=== PATIENT | male | born 1955 | race Caucasian/White ===

== ENCOUNTER 2021-04-15 18:44 | Observation (INO) | payer OTHER ==
[~2021-04-15] VITALS: Ht 190.5 cm; Wt 100.0 kg
[~2021-04-15 18:44] MED LIST: ALBU90OI6 INH; AMLO10 PO; BENMENLOZ PO; BENZ100A PO; Bactrim 400-801 EACH PO; CLIN150 PO; DEXA1L INJ; GABA300 PO; IBUP600 PO; LAVAP17G PO; LEVO750 PO; LOSA50 PO; METO25ER PO; PANT40 PO; TERA5 PO
[2021-04-15 19:43] LABS: BASOPHILS ABSOLUTE AUTO 0.02 K/mm3 (0.00-0.23); BASOPHILS PERCENT AUTO 0 % (0-2); EOSINOPHILS ABSOLUTE AUTO 0.01 K/mm3 (0.00-0.68); EOSINOPHILS PERCENT AUTO 0 % (0-6); Hematocrit 42.4 % (37.0-53.0); IMMATURE GRAN ABSOLUTE AUTO 0.02 K/mm3 (0.00-0.10); IMMATURE GRAN PERCENT AUTO 0 % (0-1); LYMPHOCYTES ABSOLUTE AUTO 0.87 K/mm3 (0.84-5.20); LYMPHOCYTES PERCENT AUTO 11 % (21-46); MONOCYTES ABSOLUTE AUTO 0.85 K/mm3 (0.16-1.47); MONOCYTES PERCENT AUTO 11 % (4-13); Mean Corpuscular HGB Conc 35.4 g/dL (31.5-36.5); Mean Corpuscular Volume 88 fL (80-100); Mean Platelet Volume 9.1 fL (9.1-12.4); NEUTROPHILS ABSOLUTE AUTO 6.36 K/mm3 (1.96-9.15); NEUTROPHILS PERCENT AUTO 78 % (41-73); Platelet Count 144 K/mm3 (150-400); RDW Coefficient Variation 12.5 % (11.7-14.2); RDW Standard Deviation 39.8 fL (35.1-46.3); Red Blood Cell Count 4.84 M/mm3 (4.30-5.90); White Blood Cell Count 8.13 K/mm3 (4.00-11.30)
[2021-04-15 20:02] LABS: Alanine Aminotransfer (ALT/SGP 24 U/L (12-78); Albumin, Blood 2.9 g/dL (3.4-5.0); Albumin/Globulin Ratio 0.9 (0.8-1.8); Alk Phos 55 U/L (50-136); Anion Gap 6 mmol/L (6-16); Aspartate Aminotrans (AST/SGOT 11 U/L (12-37); Blood Urea Nitrogen 12 mg/dL (8-24); Bun/Creatinine Ratio 11.1 (12.0-20.0); CO2, Blood 26 mmol/L (21-32); Calcium, Blood 8.7 mg/dL (8.5-10.1); Chloride, Blood 108 mmol/L (98-108); Creatinine, Blood 1.08 mg/dL (0.60-1.20); Globulin, Blood 3.4 g/dL (2.2-4.0); Glomerular Filtration Rate >60 (60-); Glucose, Blood 100 mg/dL (70-99); Potassium, Blood 4.2 mmol/L (3.5-5.5); Sodium, Blood 140 mmol/L (136-145); Total Protein, Blood 6.3 g/dL (6.4-8.2)
--- NOTE | 2021-04-15 23:50 | NUR ---
RECEIVED REPORT FROM JAYLEN MATHEW IN ER. PT ARRIVED TO ROOM IN WHEELCHAIR AND WAS ABLE TO TRANSFER TO BED ON HIS OWN. PT WAS ABLE TO WALK TO THE BATHROOM ON HIS OWN. PT REPORTS PAIN AT 5/10 ON PAIN SCALE. WILL MEDICATE PER EMAR. IV IN R AC PATENT AND FUNCTIONING. PT A&O X4 AND VERY PLEASANT. PT ORIENTED TO ROOM AND CALL LIGHT WITHIN REACH.
--- NOTE | 2021-04-16 05:55 | NUR ---
SHIFT SUMMARY PT WAS ADMITTED FOR CHOLECYSTITIS. PT DENIES N/V. HAS REPORTED PAIN AND HAS BEEN TREATED PER EMAR. PT IS A&O X4 AND VERY PLEASANT. PT IS ABLE TO GET UP AND MOBILIZE ON HIS OWN BUT WILL USE THE URINAL. PT HAS APPEARED TO REST COMFORTABLY IN BED MOST OF THE SHIFT. PT CURRENTLY RESTING IN BED AND CALL LIGHT IS WITHIN REACH.
--- NOTE | 2021-04-16 09:14 | NUR ---
PT HAD COVID TEST ON 04/15 AT THE [facility]. PAPER COPY IN PATIENT'S CHART.
--- NOTE | 2021-04-16 12:30 | NUR ---
PT TO SURGERY AT THIS TIME. PT HAD AN INSTANCE WHERE HE BECAME UPSET WITH THE HOSPITAL AND REQUESTED TO LEAVE AMA. THIS RN SPOKE WITH THE PATIENT ABOUT HIS CONCERNS AND OFFERED SOLUTIONS TO FIX THEM. CONVINCED THE PATIENT TO STAY AND HAVE SURGERY.
--- NOTE | 2021-04-16 13:18 | NUR ---
04/16/21 1318 Isela Messer PT ON SCHEDULED ANTIBIOTIC
--- NOTE | 2021-04-16 18:49 | NUR ---
SHIFT SUMMARY PT STATUS POST FOR LAP RIDGE. 4 LAP SITES WITH DERMABOND CDI. PT A/O X4 AND ABLE TO MAKE NEEDS KNOWN. PT EXPERIENCED QUITE A BIT OF PAIN AFTER SURGERY AND HAS NOT BEEN ABLE TO GET UP YET. PAIN HAS BEEN RELIEVED SOME AND THE PATIENT IS NOW ABLE TO REPOSITION IN BED. NO FLATUS OR BM BUT THE PT IS BELCHING OFTEN. VSS. WILL REPORT TO [facility].
--- NOTE | 2021-04-16 22:40 | NUR ---
IV ACCESS IV ACCESS ESTABLISHED AT [facility], IN PLACE WHEN PATIENT ARRIVED PER PATIENT REPORT
[2021-04-17 05:15] LABS: Hematocrit 47.2 % (37.0-53.0); Hemoglobin 16.1 g/dL (13.5-17.5); Mean Corpuscular HGB 30.4 pg (26.0-34.0); Mean Corpuscular HGB Conc 34.1 g/dL (31.5-36.5); Mean Corpuscular Volume 89 fL (80-100); Mean Platelet Volume 9.5 fL (9.1-12.4); Platelet Count 184 K/mm3 (150-400); RDW Coefficient Variation 12.6 % (11.7-14.2); RDW Standard Deviation 41.1 fL (35.1-46.3); Red Blood Cell Count 5.29 M/mm3 (4.30-5.90); White Blood Cell Count 12.78 K/mm3 (4.00-11.30)
[2021-04-17 05:45] LABS: Alanine Aminotransfer (ALT/SGP 43 U/L (12-78); Albumin/Globulin Ratio 0.7 (0.8-1.8); Alk Phos 64 U/L (50-136); Anion Gap 7 mmol/L (6-16); Aspartate Aminotrans (AST/SGOT 39 U/L (12-37); Bilirubin, Total 0.8 mg/dL (0.1-1.0); Blood Urea Nitrogen 12 mg/dL (8-24); Bun/Creatinine Ratio 12.1 (12.0-20.0); CO2, Blood 25 mmol/L (21-32); Calcium, Blood 9.1 mg/dL (8.5-10.1); Chloride, Blood 106 mmol/L (98-108); Creatinine, Blood 0.99 mg/dL (0.60-1.20); Globulin, Blood 4.3 g/dL (2.2-4.0); Glomerular Filtration Rate >60 (60-); Glucose, Blood 131 mg/dL (70-99); Potassium, Blood 3.9 mmol/L (3.5-5.5); Sodium, Blood 138 mmol/L (136-145); Total Protein, Blood 7.3 g/dL (6.4-8.2)
--- NOTE | 2021-04-17 07:16 | NUR ---
SHIFT SUMMARY POD1 LAP RIDGE, A/O X4, VSS, TOLERATING PO, AMBULATING INDEPENDENT IN ROOM/BATHROOM, VOIDING WELL, SMALL BM THIS SHIFT, PAINFUL FIRST HALF OF SHIFT BUT DOING BETTER USING ORAL PAIN MEDS DURING LAST HALF OF THE SHIFT. NO ACUTE EVENTS THIS SHIFT. CALL LIGHT IN REACH, REPORT GIVEN TO DAY RN.
[2021-04-17] MEDS ORDERED: HYDR1TAB94 PO (08:06)
--- NOTE | 2021-04-17 08:54 | NUR ---
DISCHARGE SUMMARY PT POD #1 FOR LAP RIDGE. PAIN CONTROLLED WITH ORAL PAIN MEDICATION. PT REPORTED HEADACHES WITH OXY SO HE WAS SWITCHED TO [place]CO. GIVEN TYLENOL FOR HEADACHE WITH GOOD EFFECT. LAP SITES x4 ON THE ABD WITH DERMABOND CDI. REPORTS MORE PAIN IN THE TOP LAP SITE VS THE OTHERS. BOWEL TONES HYPOACTIVE BUT PATIENT IS PASSING FLATUS, BELCHING, AND HAVING SMALL AMOUNTS OF STOOL. WENT OVER DISCHARGE INSTRUCTIONS AND INCISION CARE WITH THE PATIENT AND HE EXHIBITED UNDERSTANDING. PT [facility].
== END 2021-04-17 09:00 | disposition home or self-care (01) ==
LOC: ER 18:44 → SURS 18:45 → ER 21:10 → SURS 21:10
PROVIDERS: Student in an Organized Health Care Education/Training Program; Surgery; ADMIT Surgery
PROC: 0FT44ZZ Resection of Gallbladder, Percutaneous Endoscopic Approach (ICD-10-PCS; principal; 2021-04-16 11:45)
PROC: BF00YZZ Plain Radiography of Bile Ducts using Other Contrast (ICD-10-PCS; principal; 2021-04-16 11:45)
DX: K80.00 Calculus of gallbladder with acute cholecystitis without obstruction (principal); J44.9 Chronic obstructive pulmonary disease, unspecified; I10 Essential (primary) hypertension; K21.9 Gastro-esophageal reflux disease without esophagitis; Z88.0 Allergy status to penicillin; Z87.891 Personal history of nicotine dependence
CPT/HCPCS: 36415; 74300; 80053; 83605; 83690; 85025; 85027; 96374; 96376; 99285-25; A9270; C1729; G0378; J1100; J1170; J1956; J2250; J2370; J2405; J2704; J3010; J7030; J7120

== ENCOUNTER 2024-10-30 07:30 | Day surgery (SDC) | payer OTHER ==
[~2024-10-30] VITALS: Ht 193 cm; Wt 100.0 kg
[~2024-10-30 07:30] MED LIST changes: +Dexmedetomidine HCL 200 MCG / 2 ML ONE; +HYDR1TAB94 PO; +Lactated Ringer's 1,000 ML IV ONE
[2024-10-30] MEDS ORDERED: Tranexamic Acid 100 ML IV ONE (07:38)
[2024-10-30] MEDS ORDERED: CeFAZolin Sodium 2,000 MG VIAL ONE (07:39)
[2024-10-30] MEDS ORDERED: Ondansetron HCl 2 MG / ML 2ML Vial ONE ×2 (07:47→11:44)
[2024-10-30] MEDS ORDERED: Rocuronium Bromide 10 MG/ML 5ML Injection IV ONE (07:47)
[2024-10-30] MEDS ORDERED: Ketorolac Tromethamine 30mg Vial ONE (07:47)
[2024-10-30] MEDS ORDERED: Sugammadex Sodium 200 MG/2ML SDV (100 MG/ML) ONE (07:47)
[2024-10-30] MEDS ORDERED: propofoL 20 ML IV ONE (07:47)
[2024-10-30] MEDS ORDERED: Dexamethasone Sod Phos 10 MG/ML 1ML VIAL ONE (07:47)
[2024-10-30] MEDS ORDERED: Lidocaine 2%-Epineph 1:200000 20 ML SDV ONE (07:53)
[2024-10-30] MEDS ORDERED: Bupivacaine 0.5% HCl 5 MG/ML 30MLVIAL ONE (07:53)
[2024-10-30] MEDS ORDERED: Lactated Ringer's 1,000 ML IV ONE ×3 (07:59→11:15)
[2024-10-30] MEDS ORDERED: FentaNYL Citrate 50 MCG/ML 2 ML Injection ONE ×2 (07:59→10:53)
[2024-10-30] MEDS ORDERED: Midazolam HCl 1MG / ML 2ML Vial ONE (07:59)
[2024-10-30] MEDS ORDERED: EPINEPhrine HCl 1 MG/ML 1ML Amp ONE (08:29)
--- NOTE | 2024-10-30 08:36 | NUR ---
10/30/24 0836 [facility] 0822: TIMEOUT FOR BLOCK PROCEDURE 0829: BLOCK STARTED BY DR CEE, PT ON 2 LPM OXYGEN, ON PULSE OXIMETER. 0831: BLOCK COMPLETED BY DR CEE. PT TOLERATED WELL.
[2024-10-30] MEDS ORDERED: ePHEDrine Sulfate 50 MG/ML 1ML Injection ONE (08:58)
[2024-10-30] MEDS ORDERED: HYDROmorphone HCl/Pf 1MG SYR ONE (11:15)
[2024-10-30 11:37] VITALS: BP 130/71
--- NOTE | 2024-10-30 11:53 | NUR ---
10/30/24 1153 Yumiko Perez PT C/O NAUSEA, IV ZOFRAN GIVEN, PUSHED SLOWLY. 1152: PT STATED THAT HIS NAUSEA HAS IMPROVED, HOWEVER, PT REPORTED THAT HE IS FEELING DIZZY. PT UP TO RECLINER CHAIR. PT ABLE TO TOLERATE FLUIDS WELL. VSS. WCTM.
[2024-10-30] MEDS ORDERED: Metoclopramide HCl 5MG / ML 2ML Vial ONE (12:08)
[2024-10-30] MEDS ORDERED: Glycopyrrolate 0.2 MG/ML 1MLVIAL ONE (12:49)
[2024-10-30] MEDS ORDERED: Droperidol 5 mg/2 ml Vial IV PRN (13:00)
== END 2024-10-30 13:53 | disposition home or self-care (01) ==
LOC: ORSCSDS 07:30
PROVIDERS: Orthopaedic Surgery Sports Medicine
PROC: 0LS34ZZ Reposition Right Upper Arm Tendon, Percutaneous Endoscopic Approach (ICD-10-PCS; principal; 2024-10-30 09:00)
PROC: 0RNJ4ZZ Release Right Shoulder Joint, Percutaneous Endoscopic Approach (ICD-10-PCS; principal; 2024-10-30 09:00)
DX: M75.111 Incomplete rotator cuff tear or rupture of right shoulder, not specified as traumatic (principal); M19.011 Primary osteoarthritis, right shoulder; M75.21 Bicipital tendinitis, right shoulder; I10 Essential (primary) hypertension; Z87.891 Personal history of nicotine dependence; K21.9 Gastro-esophageal reflux disease without esophagitis; F43.10 Post-traumatic stress disorder, unspecified; Z79.899 Other long term (current) drug therapy
CPT/HCPCS: C1713; J0171; J0690; J1100; J1171; J1790; J1885; J2250; J2405; J2704; J2765; J3010; J7120; Q4125